=== PATIENT | female | born 1955 | race Caucasian/White ===

== ENCOUNTER 2024-02-14 12:32 | Emergency (ER) | payer OTHER ==
[~2024-02-14] VITALS: Ht 167.6 cm; Wt 81.6 kg
[2024-02-14] MEDS ORDERED: ACET1TAB23 PO (12:59)
[2024-02-14 13:16] VITALS: BP 120/74; TEMP 98; O2SAT 97
== END 2024-02-14 13:17 | disposition home or self-care (01) ==
LOC: ER 12:32
DX: S39.012A Strain of muscle, fascia and tendon of lower back, initial encounter (principal); Z79.899 Other long term (current) drug therapy; W01.0XXA Fall on same level from slipping, tripping and stumbling without subsequent striking against object, initial encounter; Y93.89 Activity, other specified; Y92.89 Other specified places as the place of occurrence of the external cause; Y99.8 Other external cause status
CPT/HCPCS: A4606; A4663

== ENCOUNTER 2024-04-11 12:50 | Emergency (ER) | payer OTHER ==
[~2024-04-11] VITALS: Ht 167.6 cm; Wt 81.6 kg
[~2024-04-11 12:50] MED LIST: ACET1TAB23 PO
[2024-04-11 12:52] VITALS: O2SAT 97
[2024-04-11] MEDS ORDERED: LIDO30AD10 TP (13:33)
[2024-04-11] MEDS ORDERED: CYCL5TAB PO (13:33)
[2024-04-11] MEDS ORDERED: IBUP-1955 PO (13:33)
== END 2024-04-11 13:54 | disposition home or self-care (01) ==
LOC: ER 12:50
DX: G89.29 Other chronic pain (principal); M54.50 Low back pain, unspecified; F32.A Depression, unspecified; Z79.899 Other long term (current) drug therapy
CPT/HCPCS: A4606; A4663